=== PATIENT | female | born 1940 | race Caucasian/White ===

== ENCOUNTER 2019-05-28 18:29 | Day surgery (SDC) | payer OTHER, SELFPAY ==
[2019-05-28] MEDS ORDERED: ONDANSETRON 4 MG/2 ML VIAL ONE ×2 (18:55→19:55)
[2019-05-28] MEDS ORDERED: FAMOTIDINE 20 MG/2 ML VIAL IV ONE (18:56)
[2019-05-28] MEDS ORDERED: NA CHLORIDE 0.9% 1,000 ML ONE (18:56)
[2019-05-28] MEDS ORDERED: GLUCAGON 1 MG/VIAL ONE ×2 (18:57→19:30)
--- NOTE | 2019-05-28 19:38 | ER ---
Nurse's Notes [facility] Name: Margie German Age: 78 yrs Sex: Female : 1940 Arrival Date: 05/28/2019 Time: 18:29 Bed 6 Private MD: Diagnosis: Esophageal obstruction Presentation: 05/28 18:30 Presenting complaint: Patient states: i cant stop vomiting, since 445 this afternoon, i tw2 had snacks, i am having some epigastric pain. Transition of care: patient was not received from another setting of care. Onset of symptoms was May 28, 2019. Risk Assessment: Do you want to hurt yourself or someone else? Patient reports no desire to harm self or others. Initial Sepsis Screen: Does the patient meet any 2 criteria? No. Patient's initial sepsis screen is negative. Does the patient have a suspected source of infection? No. Patient's initial sepsis screen is negative. Care prior to arrival: None. 18:30 Method Of Arrival: Ambulatory tw2 18:30 Acuity: REMI 3 tw2 Triage Assessment: 18:36 General: Appears uncomfortable, Behavior is calm, cooperative, appropriate for age. tw2 Pain: Complains of pain in epigastric area. GI: Reports lower abdominal pain, upper abdominal pain, nausea. Historical: - Allergies: 18:36 No Known Allergies; tw2 - Home Meds: 18:36 amlodipine oral [Active]; Ranitidine Oral [Active]; Meclizine Oral [Active]; Myrbetriq tw2 oral oral [Active]; - PMHx: 18:36 Hyperlipidemia; GERD; vertigo; tw2 - PSHx: 18:36 Appendectomy; Tonsillectomy; shunt, brain sx; tw2 - Immunization history:: Adult Immunizations. - Social history:: Smoking status: . - Ebola Screening: : Patient denies travel to an Ebola-affected area in the 21 days before illness onset. - Family history:: not pertinent. Screenin:45 Abuse screen: Denies threats or abuse. Denies injuries from another. Nutritional ca1 screening: No deficits noted. Tuberculosis screening: No symptoms or risk factors identified. Fall Risk IV access (20 points). Assessment: 18:45 General: Appears in no apparent distress. comfortable, Behavior is calm, cooperative, ca1 appropriate for age. Pain: Complains of pain in epigastric area Pain currently is 3 out of 10 on a pain scale. Neuro: Level of Consciousness is awake, alert, obeys commands, Oriented to person, place, time, situation. Cardiovascular: Heart tones S1 S2 present Capillary refill < 3 seconds Patient's skin is warm and dry. Pulses are all present. Respiratory: Airway is patent Respiratory effort is even, unlabored, Respiratory pattern is regular, symmetrical, Breath sounds are clear bilaterally. GI: Abdomen is flat, non-distended, Pt is actively vomiting clear fluid, Bowel sounds present X 4 quads. Abd is soft and non tender X 4 quads. Reports nausea. : No deficits noted. No signs and/or symptoms were reported regarding the genitourinary system. EENT: No deficits noted. No signs and/or symptoms were reported regarding the EENT system. Derm: Skin is intact, is healthy with good turgor, Skin is pink, warm \T\ dry. Musculoskeletal: Circulation, motion, and sensation intact. Capillary refill < 3 seconds, Range of motion: intact in all extremities. 19:20 General: Appears in no apparent distress. uncomfortable, Behavior is calm, cooperative, rr5 appropriate for age. Pain: Complains of pain in abdomen Pain does not radiate. Pain currently is 2 out of 10 on a pain scale. Quality of pain is described as tender, Pain began gradually, Is intermittent. GI: Pt is actively vomiting clear fluid, Bowel sounds present X 4 quads. Abd is soft and non tender X 4 quads. Reports lower abdominal pain, nausea, vomiting. 19:20 Neuro: Level of Consciousness is awake, alert, obeys commands, Oriented to person, rr5 place, time, situation. Cardiovascular: Capillary refill < 3 seconds Patient's skin is warm and dry. Respiratory: Airway is patent Respiratory effort is even, unlabored, Respiratory pattern is regular, symmetrical. : No signs and/or symptoms were reported regarding the genitourinary system. EENT: No signs and/or symptoms were reported regarding the EENT system. Derm: Skin is intact, is healthy with good turgor, Skin temperature is warm. Musculoskeletal: Circulation, motion, and sensation intact. Capillary refill < 3 seconds. 20:10 Reassessment: Patient appears in no apparent distress at this time. transfer to OR. rr5 awake, alert, breathing spontaneously at room air. vitally stable. 21:35 Reassessment: Patient appears in no apparent distress at this time. Patient is alert, rr5 oriented x 3, equal unlabored respirations, skin warm/dry/pink. patient came back from OR accompanied by dr. alatorre, drowsy attached to monitor. vital signs taken and recorded. as per dr alatorre once patient is ambulatory she can be discharge. 22:05 Reassessment: Patient appears in no apparent distress at this time. Patient is alert, rr5 oriented x 3, equal unlabored respirations, skin warm/dry/pink. awake, alert,able to walk going to rest room, steady gait no dizziness reported. 22:18 Reassessment: Patient appears in no apparent distress at this time. Patient is alert, rr5 oriented x 3, equal unlabored respirations, skin warm/dry/pink. discharge instruction given and explained without complaints made. Patient denies pain at this time. Patient states feeling better. Patient states symptoms have improved. Vital Signs: 18:32 BP 169 / 66; Pulse 89; Resp 17; Temp 98.7(TE); Pulse Ox 99% on R/A; Weight 65.77 kg tw2 (R); Height 5 ft. 2 in. (157.48 cm); Pain 3/10; 19:30 BP 162 / 70; Pulse 86; Resp 20; Temp 98; Pulse Ox 98% ; Pain 2/10; rr5 21:40 BP 144 / 64; Pulse 84; Resp 16; Pulse Ox 95% on R/A; rr5 22:18 BP 139 / 70; Pulse 84; Resp 16; Temp 97.8; Pulse Ox 99% on R/A; rr5 18:32 Body Mass Index 26.52 (65.77 kg, 157.48 cm) tw2 ED Course: 18:29 Patient arrived in ED. mr 18:31 Triage completed. tw2 18:31 Arm band placed on. tw2 18:34 Harpal Espana MD is Attending Physician. humberto 18:43 Lisa Worthington, VIVIAN is Primary Nurse. ca1 18:45 Patient has correct armband on for positive identification. Placed in gown. Bed in low ca1 position. Call light in reach. Side rails up X 1. Pulse ox on. NIBP on. quality assurance monitor body on. Warm blanket given. 18:45 Initial lab(s) drawn, by me, sent to lab. Inserted saline lock: 22 gauge in right ca1 antecubital area, using aseptic technique. Blood collected. 18:45 No provider procedures requiring assistance completed. ca1 18:52 EKG done, by ED staff, reviewed by Harpal Espana MD. jb1 19:16 Report given to VIVIAN West. ca1 19:36 Peyman Alatorre MD is Hospitalizing Provider. humberto 20:17 Patient admitted, IV remains in place. intact, No redness/swelling at site. rr5 21:39 Primary Nurse role handed off by Lisa Worthington RN rr5 21:39 Brett Scott RN is Primary Nurse. rr5 22:18 IV discontinued, intact, bleeding controlled, No redness/swelling at site. Pressure rr5 dressing applied. Administered Medications: 18:48 Drug: NS 0.9% 1000 ml Route: IV; Rate: 1 bolus; Site: right antecubital; ca1 19:50 Follow up: Response: No adverse reaction; IV Status: Completed infusion; IV Intake: rr5 1000ml 18:50 Drug: Zofran 4 mg Route: IVP; Site: right antecubital; ca1 20:18 Follow up: Response: No adverse reaction; Nausea unchanged; Vomiting unchanged rr5 18:54 Drug: Pepcid 20 mg Route: IVP; Site: right antecubital; ca1 20:19 Follow up: Response: No adverse reaction rr5 18:58 Drug: Glucagon 1 mg Route: IVP; Site: right antecubital; ca1 20:18 Follow up: Response: No adverse reaction; No change in condition rr5 19:35 Drug: Glucagon 1 mg Route: IVP; Site: right antecubital; rr5 20:18 Follow up: Response: No change in condition rr5 20:00 Drug: Zofran 4 mg Route: IVP; Site: right antecubital; rr5 20:18 Follow up: Response: No adverse reaction rr5 Intake: 19:50 IV: 1000ml; Total: 1000ml. rr5 Outcome: 19:37 Decision to Hospitalize by Provider. humberto 20:15 Admitted to OR accompanied by nurse, accompanied by tech, via stretcher, room OR, with rr5 chart, Report called to OR staff, accompanied by dr. alatorre 20:15 Condition: stable rr5 20:15 Instructed on the need for admit. 20:20 Patient left the ED. rr5 22:11 Discharge ordered by . davide 22:18 Discharged to home ambulatory, with family. rr5 22:18 Condition: stable 22:18 Discharge instructions given to patient, Instructed on Demonstrated understanding of instructions, follow-up care. 22:26 Patient left the ED. rr5 Signatures: Bryn Infante jbHarpal Hernandez MD MD cha Lam, Pin, MD MD pkl Rivera, Mary mr Lynsey Foley, RN RN tw2 Brett Scott, RN RN rr5 Lisa Worthington RN RN ca1
--- NOTE | 2019-05-28 19:38 | EDPHYS ---
Physician Documentation [facility] Name: Margie German Age: 78 yrs Sex: Female : 1940 Arrival Date: 05/28/2019 Time: 18:29 Bed 6 Private MD: ED Physician Harpal Espana HPI: 05/28 18:43 This 78 yrs old Female presents to ER via Ambulatory with complaints of humberto Abdominal Pain. 18:43 The patient presents with abdominal pain in the epigastric area, in the upper abdomen. humberto Onset: The symptoms/episode began/occurred just prior to arrival. The patient presents to the emergency department with nausea, vomiting, 3 times since the onset of symptoms. Onset: The symptoms/episode began/occurred just prior to arrival, this morning. Possible causes: food bolus in esophagus. The symptoms are aggravated by food , The symptoms are alleviated by nothing. Historical: - Allergies: 18:36 No Known Allergies; tw2 - Home Meds: 18:36 amlodipine oral [Active]; Ranitidine Oral [Active]; Meclizine Oral [Active]; Myrbetriq tw2 oral oral [Active]; - PMHx: 18:36 Hyperlipidemia; GERD; vertigo; tw2 - PSHx: 18:36 Appendectomy; Tonsillectomy; shunt, brain sx; tw2 - Immunization history:: Adult Immunizations. - Social history:: Smoking status: . - Ebola Screening: : Patient denies travel to an Ebola-affected area in the 21 days before illness onset. - Family history:: not pertinent. ROS: 18:43 Constitutional: Negative for fever, chills, and weight loss, Eyes: Negative for injury, humberto pain, redness, and discharge, ENT: Negative for injury, pain, and discharge, Neck: Negative for injury, pain, and swelling, Cardiovascular: Negative for chest pain, palpitations, and edema, Respiratory: Negative for shortness of breath, cough, wheezing, and pleuritic chest pain, Back: Negative for injury and pain, : Negative for injury, bleeding, discharge, and swelling, MS/Extremity: Negative for injury and deformity, Skin: Negative for injury, rash, and discoloration, Neuro: Negative for headache, weakness, numbness, tingling, and seizure, Psych: Negative for depression, anxiety, suicide ideation, homicidal ideation, and hallucinations, Allergy/Immunology: Negative for hives, rash, and allergies, Endocrine: Negative for neck swelling, polydipsia, polyuria, polyphagia, and marked weight changes, Hematologic/Lymphatic: Negative for swollen nodes, abnormal bleeding, and unusual bruising. 18:43 Abdomen/GI: Positive for abdominal pain, nausea and vomiting. Exam: 18:43 Constitutional: This is a well developed, well nourished patient who is awake, alert, humberto and in no acute distress. Head/Face: Normocephalic, atraumatic. Eyes: Pupils equal round and reactive to light, extra-ocular motions intact. Lids and lashes normal. Conjunctiva and sclera are non-icteric and not injected. Cornea within normal limits. Periorbital areas with no swelling, redness, or edema. ENT: Nares patent. No nasal discharge, no septal abnormalities noted. Tympanic membranes are normal and external auditory canals are clear. Oropharynx with no redness, swelling, or masses, exudates, or evidence of obstruction, uvula midline. Mucous membranes moist. Neck: Trachea midline, no thyromegaly or masses palpated, and no cervical lymphadenopathy. Supple, full range of motion without nuchal rigidity, or vertebral point tenderness. No Meningismus. Chest/axilla: Normal chest wall appearance and motion. Nontender with no deformity. No lesions are appreciated. Cardiovascular: Regular rate and rhythm with a normal S1 and S2. No gallops, murmurs, or rubs. Normal PMI, no JVD. No pulse deficits. Respiratory: Lungs have equal breath sounds bilaterally, clear to auscultation and percussion. No rales, rhonchi or wheezes noted. No increased work of breathing, no retractions or nasal flaring. Abdomen/GI: Soft, non-tender, with normal bowel sounds. No distension or tympany. No guarding or rebound. No evidence of tenderness throughout. Back: No spinal tenderness. No costovertebral tenderness. Full range of motion. Skin: Warm, dry with normal turgor. Normal color with no rashes, no lesions, and no evidence of cellulitis. MS/ Extremity: Pulses equal, no cyanosis. Neurovascular intact. Full, normal range of motion. Neuro: Awake and alert, GCS 15, oriented to person, place, time, and situation. Cranial nerves II-XII grossly intact. Motor strength 5/5 in all extremities. Sensory grossly intact. Cerebellar exam normal. Normal gait. Psych: Awake, alert, with orientation to person, place and time. Behavior, mood, and affect are within normal limits. Vital Signs: 18:32 BP 169 / 66; Pulse 89; Resp 17; Temp 98.7(TE); Pulse Ox 99% on R/A; Weight 65.77 kg tw2 (R); Height 5 ft. 2 in. (157.48 cm); Pain 3/10; 19:30 BP 162 / 70; Pulse 86; Resp 20; Temp 98; Pulse Ox 98% ; Pain 2/10; rr5 21:40 BP 144 / 64; Pulse 84; Resp 16; Pulse Ox 95% on R/A; rr5 22:18 BP 139 / 70; Pulse 84; Resp 16; Temp 97.8; Pulse Ox 99% on R/A; rr5 18:32 Body Mass Index 26.52 (65.77 kg, 157.48 cm) tw2 MDM: 18:36 Patient medically screened. [facility] 18:46 Data reviewed: vital signs, nurses notes, lab test result(s), EKG, radiologic studies, [facility] plain films. 05/28 18:42 Order name: Basic Metabolic Panel [facility] 05/28 18:42 Order name: CBC with Diff [facility] 05/28 18:42 Order name: LFT's [facility] 05/28 18:42 Order name: Magnesium [facility] 05/28 18:42 Order name: Troponin (emerg Dept Use Only) [facility] 05/28 18:42 Order name: Lipase [facility] 05/28 18:42 Order name: XRAY Chest (1 view) [facility] 05/28 19:40 Order name: Basic Metabolic Panel; Complete Time: 19:42 [facility] 05/28 19:40 Order name: Liver (Hepatic) Function; Complete Time: 19:42 [facility] 05/28 19:40 Order name: Troponin (Emerg Dept Use Only); Complete Time: 19:42 [facility] 05/28 19:40 Order name: Magnesium; Complete Time: 19:42 [facility] 05/28 19:40 Order name: Lipase; Complete Time: 19:42 [facility] 05/28 19:43 Order name: CBC with Automated Diff; Complete Time: 19:46 [facility] 05/28 19:43 Order name: RAD; Complete Time: 19:46 [facility] 05/28 18:42 Order name: EKG; Complete Time: 18:43 [facility] 05/28 18:42 Order name: Cardiac monitoring; Complete Time: 18:43 [facility] 05/28 18:42 Order name: EKG - Nurse/Tech; Complete Time: 18:53 [facility] 05/28 18:42 Order name: IV Saline Lock; Complete Time: 18:53 [facility] 05/28 18:42 Order name: Labs collected and sent; Complete Time: 18:53 [facility] 05/28 18:42 Order name: O2 Per Protocol; Complete Time: 18:44 [facility] 05/28 18:42 Order name: O2 Sat Monitoring; Complete Time: 18:44 [facility] Administered Medications: 18:48 Drug: NS 0.9% 1000 ml Route: IV; Rate: 1 bolus; Site: right antecubital; ca1 19:50 Follow up: Response: No adverse reaction; IV Status: Completed infusion; IV Intake: rr5 1000ml 18:50 Drug: Zofran 4 mg Route: IVP; Site: right antecubital; ca1 20:18 Follow up: Response: No adverse reaction; Nausea unchanged; Vomiting unchanged rr5 18:54 Drug: Pepcid 20 mg Route: IVP; Site: right antecubital; ca1 20:19 Follow up: Response: No adverse reaction rr5 18:58 Drug: Glucagon 1 mg Route: IVP; Site: right antecubital; ca1 20:18 Follow up: Response: No adverse reaction; No change in condition rr5 19:35 Drug: Glucagon 1 mg Route: IVP; Site: right antecubital; rr5 20:18 Follow up: Response: No change in condition rr5 20:00 Drug: Zofran 4 mg Route: IVP; Site: right antecubital; rr5 20:18 Follow up: Response: No adverse reaction rr5 Disposition: 05/28/19 22:11 Discharged to Home. Impression: Esophageal obstruction. - Condition is Stable. - Medication Reconciliation Form, Thank You Letter, Antibiotic Education, Prescription Opioid Use form. - Follow up: Private Physician; When: 2 - 3 days; Reason: Re-evaluation by your physician. - Problem is new. - Symptoms are resolved. Signatures: Dispatcher [employer] Harpal Peña MD MD cha Lam, Pin, MD MD pkl Foley, Lynsey, RN RN tw2 Brett Scott, RN RN rr5 Lisa Worthington RN RN ca1 Corrections: (The following items were deleted from the chart) 20:20 19:37 Hospitalization Ordered by Peyman Falcon MD for Observation. Preliminary diagnosis rr5 is Esophageal obstruction - food bolus; Vomiting. Bed requested for DAY SURGERY OTHER. Status is Observation. Condition is Stable. Problem is new. Symptoms have improved. UTI on Admission? No. humberto 22:10 20:20 05/28/2019 19:37 Hospitalization Ordered by Peyman Falcon MD for Observation. pkl Preliminary diagnosis is Esophageal obstruction - food bolus; Vomiting. Bed requested for DAY SURGERY OTHER. Status is Observation. Condition is Stable. Problem is new. Symptoms have improved. UTI on Admission? No. rr5 22:26 22:11 05/28/2019 22:11 Discharged to Home. Impression: Esophageal obstruction. rr5 Condition is Stable. Forms are Medication Reconciliation Form, Thank You Letter, Antibiotic Education, Prescription Opioid Use. Follow up: Private Physician; When: 2 - 3 days; Reason: Re-evaluation by your physician. Problem is new. Symptoms are resolved. pkl
[2019-05-28 19:39] LABS: Absolute Lymphocytes (CBC) 0.5 K/uL (0.7-4.9); Basophils % 0.8 % (0-1.3); Hematocrit 38.3 % (36.0-45.0); Lymphocytes % 9.2 % (15.3-44.8); MPV 9.4 fL (7.6-11.3)
[2019-05-28 19:40] LABS: ALT/SGPT 19 U/L (12-78); AST/SGOT 12 U/L (15-37); Albumin 4.2 g/dL (3.4-5.0); Alkaline Phosphatase 88 U/L (45-117); BUN Blood Urea Nitrogen 16 mg/dL (7-18); Bicarbonate 24 mmol/L (21-32); Bilirubin Direct 0.1 mg/dL (0-0.2); Bilirubin Total 0.4 mg/dL (0.2-1.0); Glucose Level 103 mg/dL (74-106); Lipase 209 U/L (73-393); Magnesium 2.1 mg/dL (1.8-2.4); Potassium 3.7 mmol/L (3.5-5.1); Protein, Total 7.7 g/dL (6.4-8.2); Sodium Level 143 mmol/L (136-145); Troponin (Emerg Dept Use Only) < 0.02 ng/mL (0.0-0.045)
[2019-05-28] MEDS ORDERED: ONDANSETRON 4 MG/2 ML VIAL IV PRN (19:40)
--- NOTE | 2019-05-28 19:41 | RAD REPORT ---
EXAM DESCRIPTION: [facility] Single View05/28/2019 7:06 pm CLINICAL HISTORY: cough COMPARISON: none FINDINGS: The lungs appear clear of acute infiltrate. The heart is normal size IMPRESSION: No acute abnormalities displayed
[2019-05-28] MEDS ORDERED: NA CHLORIDE 0.9% 1,000 ML IV SCH (20:00)
[2019-05-28] MEDS ORDERED: PROPOFOL 200 MG/20 ML VIAL IV ONE ×2 (20:19→20:49)
[2019-05-28] MEDS ORDERED: Ringers Lactate 1,000 ML IV ONE (20:49)
--- NOTE | 2019-05-28 21:11 | ENDO RPT ---
[address], [address] EGD PROCEDURE REPORT EXAM DATE: 05/28/2019 PATIENT NAME: Margie Burrell MR#: [id number] BIRTHDATE: 1940 ATTENDING: Peyman Falcon DR STATUS: inpatient - [facility] [employer]: Ameya Clarke, Sofia Womack RN, and Evette Clarke INDICATIONS: The patient is a 78 yr old Female here for an EGD due to foreign body and Food Impaction PROCEDURE PERFORMED: EGD with foreign body removal MEDICATIONS: Per Anesthesia. TOPICAL ANESTHETIC: none CONSENT: The patient understands the risks and benefits of the procedure and understands that these risks include, but are not limited to: sedation, allergic reaction, infection, perforation and/or bleeding. Alternative means of evaluation and treatment include, among others: physical exam, x-rays, and/or surgical intervention. The patient elects to proceed with this endoscopic procedure. DESCRIPTION OF PROCEDURE: During intra-op preparation period all mechanical medical equipment was checked for proper function. Hand hygiene and appropriate measures for infection prevention was taken. Procedure, possible complications, and alternatives including but not limited to the possibility of bleeding, perforation, tear, infection, sepsis, need for surgery, need for blood transfusion, and anesthesia related complications were explained to the patient. After the risks, benefits and alternatives of the procedure were thoroughly explained, Informed consent was verified, confirmed and timeout was successfully executed by the treatment team. The patient was placed in the left lateral position. The patient was anesthetized with topical anesthesia. Through the anesthetized oropharyngeal area, the scope was passed without any difficulty. The Pentax EG-[id number] ([id number]) endoscope was introduced through the mouth and advanced to the the GE Junction where impacted food bolus was noted. It was resistant to push techique so an overtube was placed to protect airway and the scope was advanced to GEJ. The food bolus was removed piecemeal by forcepts, kulkarni net, push technique. The scope was then advanced to the stomach body. Retroflexed views revealed a moderate sized hiatal hernia and Retroflexed views revealed a small hiatal hernia. The gastroscope was then slowly withdrawn and removed. Retained food was present in the gastroesophageal junction. Impacted and Removed by pull and push techniques ADVERSE EVENTS: There were no complications. IMPRESSIONS: Retained food was present in the gastroesophageal junction RECOMMENDATIONS: 1. acid suppression therapy 2. anti-reflux regimen 3. avoid NSAIDS 4. follow-up: office 2 week(s) 5. esophagram REPEAT EXAM: Return in 1 month(s) for EGD. Peyman Falcon DR eSigned: Peyman Falcon DR 05/28/2019 9:10 PM cc: CPT CODES: ICD9 CODES: PATIENT NAME: Margie Burrell MR#: [id number]
--- NOTE | 2019-05-28 22:52 | EKG ---
Test Date: 2019-05-28 Test Time: 18:50:08 Eligibility Services Representative: TG MEASUREMENT RESULTS: Intervals: Rate: 88 [place]: 148 QRSD: 80 QT: 378 QTc: 457 [place]: P: 68 [place]: 148 QRS: 64 T: 70 INTERPRETIVE STATEMENTS: Sinus rhythm with frequent premature ventricular complexes Otherwise normal ECG No previous ECG available for comparison Electronically Signed On 05-28-19 22:51:36 PLANNING DIRECTOR by Scott Ventura
--- NOTE | 2019-05-28 23:40 | HP ---
Date of Admission: 05/28/2019 Brief History Of Present Illness: Patient is a 78-year-old female who has had a history of difficulty swallowing over years past and had several episodes of what sounds like food impaction with nausea, vomiting, but usually her symptoms were relieved by having episodes of emesis. On this particular occasion earlier in the day, she was eating small amounts of food, did not eat significant amount of food, however, she developed pressure similar before in the past, associated with nausea and vomiting. She was unable to tolerate any p.o., had a pressure sensation in the midepigastric area which did not radiate. It was somewhat improved with vomiting, but she has been unable to clear her secretions and continues to have emesis with any attempted ingestion of p.o. Patient has been unable to relieve her symptoms despite 2 rounds of glucagon and as such this sounds like a likely food impaction. 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 Past Surgical History: Appendectomy, brain surgery with a shunt, tonsillectomy. Allergies: NO KNOWN DRUG ALLERGIES. Home Medications: Meclizine, Pepcid, amlodipine, Myrbetriq. Social History: She denies smoking, alcohol other than socially, and recreational drug use. Family History: Negative. Physical Examination: General: At the time of my examination, she is awake, alert, and oriented. Psychiatric: She is appropriate conversive. HEENT: She is normocephalic. Sclerae icteric. Mucous membranes are moist. Oropharynx clear. Neck: Supple. No JVD. Chest: Normal expansion and excursion. Cardiovascular: Regular rate and rhythm. Pulmonary: Clear to auscultation bilaterally. Abdomen: Soft, nontender, nondistended. No rebound. No guarding. No focal peritonitis. Extremities: No clubbing, cyanosis, edema. SKIN: Warm, dry. Laboratory Data: Reveals a white blood cell count of 5.2, hemoglobin 12.9, hematocrit of 38.3, platelet count is 286, neutrophils are 70%. Her sodium is 143, potassium 3.7, chloride 101, carbon dioxide 24, BUN 16, creatinine 0.8, glucose is 103, magnesium 2.1, bilirubin direct component 0.1, AST is 12, ALT is 19, alkaline phosphatase is 88, lipase is 209. She had a chest x-ray performed as well which is officially read as no acute abnormalities displayed. In addition, she had troponin checked, which was 0.02 in the rapid troponin. She had a 12-lead EKG, which only showed some occasional PVCs. Assessment And Plan: This is a 78-year-old female was comes in with signs and symptoms of food bolus, unable to be passed by glucagon administration. 1. IV fluid hydration. 2. N.p.o. 3. I have explained the risks, benefits, and alternatives of esophagogastroduodenoscopy with disimpaction of food bolus including but not limited to bleeding, infection, damage to surrounding tissues, gastric perforation, need for further operation and procedures, the patient agrees to proceed as indicated. PATRICK/GHANSHYAM Voice ID: [id number] [id number]
[2019-05-29 05:41] VITALS: BP 139/70; TEMP 97.8; O2SAT 99
== END 2019-05-28 22:26 | disposition home or self-care (01) ==
LOC: DS 18:29 → ER 18:29 → ERHOLD 20:19 → UNDOADMOB 20:19 → DS 22:26 → ER 22:26
PROVIDERS: ATTEND Surgery
PROC: 0DC38ZZ Extirpation of Matter from Lower Esophagus, Via Natural or Artificial Opening Endoscopic (ICD-10-PCS; principal; 2019-05-28 20:30)
DX: T18.128A Food in esophagus causing other injury, initial encounter (principal); K44.9 Diaphragmatic hernia without obstruction or gangrene; K21.9 Gastro-esophageal reflux disease without esophagitis; I10 Essential (primary) hypertension; E78.5 Hyperlipidemia, unspecified; N32.81 Overactive bladder; Z98.2 Presence of cerebrospinal fluid drainage device; Z86.12 Personal history of poliomyelitis
CPT/HCPCS: 96361; 93005; 85025; 80048; 36415; 83735; 80076; 84484; 83690; 71045; 96375; 96374; 99285; 43247; J2704 ×2; J1610 ×2; J7120; J7030; J2405 ×2